=== PATIENT | male | born 1945 | race Caucasian/White ===

== ENCOUNTER 2021-02-15 07:42 | Outpatient (REF) | payer MEDICARE, SELFPAY ==
--- NOTE | ~2021-02-15 | US_ITS ---
EXAMINATION: US LOWER EXTREMITY DUPLEX DOPPLER ARTERIAL EVALUATION, BILATERAL CLINICAL INFORMATION: Chronic kidney disease. Leg pain. COMPARISON: None TECHNIQUE: Real-time ultrasound and Doppler techniques (integrating B-mode 2-D vascular images, Doppler spectral analysis and color-flow Doppler imaging) were utilized to interrogate the lower extremity arteries bilaterally. FINDINGS: Right Lower Extremity: The common femoral artery has a triphasic waveform with peak systolic velocity of 121 cm/s. The right proximal superficial femoral artery has a triphasic waveform with peak systolic velocity of 96 cm/s. The profunda femoral artery has a biphasic waveform with peak systolic velocity of 46 cm/s. The mid superficial femoral artery has a triphasic waveform with peak systolic velocity 102 cm/s. The distal superficial femoral artery has a triphasic waveform with peak systolic velocity of 61 cm/s. The proximal popliteal artery has a triphasic waveform with peak systolic velocity of 53 cm/s. The right proximal peroneal artery has a triphasic waveform and peak systolic velocity of 52 cm/s. The mid posterior tibial artery has a biphasic waveform with peak systolic velocity of 90 cm/s. The proximal popliteal artery has a biphasic waveform with peak systolic velocity of 74 cm/s. Left Lower Extremity: Common femoral artery has a triphasic waveform and peak systolic velocity of 92 cm/s. Proximal superficial femoral artery has a triphasic waveform with peak systolic velocity of 97 cm/s. Profunda femoral artery has a biphasic waveform with peak systolic velocity of 56 cm/s. Mid superficial femoral artery has a triphasic waveform with peak systolic velocity of 98 cm/s. Distal superficial femoral artery has a biphasic waveform with peak systolic velocity of 62 cm/s. Proximal popliteal artery has a biphasic waveform with peak systolic velocity of 43 cm/s. Proximal peroneal artery has a biphasic waveform with peak systolic velocity of 55 cm/s. The posterior tibial artery has a biphasic waveform throughout its length in the calf. About the distal aspect, the peak systolic velocity is 69 cm/s. US/US arterial duplex LE BI IMPRESSION: No hemodynamically significant lower extremity arterial stenosis appreciated.
--- NOTE | ~2021-02-15 | US_ITS ---
EXAMINATION: US EXTRACRANIAL CAROTID DUPLEX, BILATERAL CLINICAL INFORMATION: Bruit. Syncope. History of diabetes COMPARISON: None TECHNIQUE: Real-time ultrasound and Doppler techniques (integrating B-mode 2-D vascular images, Doppler spectral analysis and color-flow Doppler imaging) were utilized to interrogate the extracranial carotid arteries, the vertebral arteries and proximal subclavian arteries bilaterally. The degree of stenosis is determined by criteria similar to NASCET. FINDINGS: Right Side: 1. There is calcified atherosclerotic plaque seen in the bifurcation/proximal ICA region. 2. The common carotid artery PSV proximally is 99 cm/s and distally 83 cm/s. 3. The proximal internal carotid artery velocities are 80 cm/s systolic and 31 cm/s diastolic. 4. The proximal external carotid artery PSV is 153 cm/s. 5. The vertebral artery shows antegrade flow. 6. The subclavian artery waveforms are normal. Left Side: 1. There is calcified atherosclerotic plaque seen in the bifurcation/proximal ICA region. 2. The common carotid artery PSV proximally is 130 cm/s and distally 82 cm/s. 3. The proximal internal carotid artery velocities are 80 cm/s systolic and 26 cm/s diastolic. 4. The proximal external carotid artery PSV is 104 cm/s. 5. The vertebral artery shows antegrade flow. 6. The subclavian artery waveforms are normal. US/US carotid duplex BI IMPRESSION: 1. RIGHT: Minimal, non-hemodynamically significant stenosis of the proximal right internal carotid artery corresponding to a 0-49% stenosis by velocity criteria. 2. LEFT: Minimal, non-hemodynamically significant stenosis of the proximal left internal carotid artery corresponding to a 0-49% stenosis by velocity criteria.
== END 2021-02-15 07:43 | disposition home or self-care (01) ==
LOC: HO.US 07:42
PROVIDERS: PCP Family Medicine; Visit Provider Internal Medicine Nephrology
DX: N18.31 Chronic kidney disease, stage 3a (principal); E11.21 Type 2 diabetes mellitus with diabetic nephropathy; N25.0 Renal osteodystrophy; Z90.5 Acquired absence of kidney; R09.89 Other specified symptoms and signs involving the circulatory and respiratory systems; R55 Syncope and collapse; M79.606 Pain in leg, unspecified
CPT/HCPCS: 93880; 93925